=== PATIENT | male | born 1985 | race Caucasian/White ===

== ENCOUNTER 2023-10-17 18:19 | Emergency (ER) | payer OTHER, SELFPAY ==
[2023-10-17 18:27] VITALS: BP 123/75
[2023-10-17 20:03] LABS: Urine Albumin Negative (Neg - Trace); Urine Bilirubin Negative (Negative); Urine Character Clear (Clear); Urine Color Yellow; Urine Glucose Negative (Negative); Urine Ketone Negative (Negative); Urine Leukocyte Negative (Negative); Urine Nitrite Negative (Negative); Urine Occult Blood Negative (Negative); Urine Specific Gravity 1.015 (<1.030); Urine Urobilinogen Negative (Neg - 1+)
--- NOTE | 2023-10-17 20:27 | ED.GENMED ---
History of Present Illness
General
Chief Complaint: Male Genito-Urinary Symptoms
Time Seen by Provider: 10/17/23 19:58
Travel History
Have you had any contact with someone who has COVID-19?: No
Do you have any symptoms of coronavirus? Fever > 100 degrees, chills, cough, shortness of breath, sore throat, loss of taste or smell, muscle aches, or headache?: No
History of Present Illness
History of Present Illness:
38-year-old otherwise healthy male presents to the emergency department for evaluation of left testicular pain beginning last week. He states he initially had UTI symptoms and went to a urgent care, apparently tested negative for STDs as did his
significant other, he was treated with a 1 week course of doxycycline however symptoms did not change. He is also concerned for a palpable lump to the left side of his penile shaft. Denies any dysuria or penile discharge. Denies any abdominal
pain, night sweats, or fevers
Past History
Past History
ED Past Medical History: Negative Arrthythmia or Asthma
Social History
Tobacco: Smoker
Alcohol: None
Drug: None
Living: with family
Employment: Employed
Family History
Family History: Hypertension
Review of Systems
Review of Systems
Allergies reviewed?: Yes
All Other Systems: ROS reviewed and negative except as documented in HPI and ROS
Phy Exam
Physical Exam
Physical Exam:
GEN: Well appearing, NAD, WDWN
HEENT: Oral mucosa moist, no scleral icterus
Cardiac: Regular rate
Lung: No respiratory distress, no tachypnea
: Circumcised, there is a firm nodular lump palpated to the distal penile shaft deep to the skin, feel this most likely represents an epidermal cyst. Major penile shaft is unremarkable. There is tenderness to the left epididymis with no obvious
swelling, no abnormal testicular lie, cremasteric reflexes intact bilaterally
MSK: No gross deformity or injuries
Skin: Good color, no pallor or jaundice, no rashes
Neuro: AO x3, moves all extremities freely
Psych: Calm, cooperative
Course
Orders/Labs/Results
Orders:
Orders
10/17/23 19:52
Urinalysis Reflex To Culture Urgent
Date Specimen was Collected: 10/17/23
Time Specimen was Collected: 18:32
Vital Signs
Initial and Last Documented VS:
Initial Vital Signs
Temp Pulse Resp BP Pulse Ox
98.4 F 110 16 123/75 99
10/17/23 18:27 10/17/23 18:27 10/17/23 18:27 10/17/23 18:27 10/17/23 18:27
Last Documented Vital Signs
Temp Pulse Resp BP Pulse Ox
98.4 F 100 16 123/75 98
10/17/23 18:27 10/17/23 20:36 10/17/23 18:27 10/17/23 18:27 10/17/23 20:36
MDM/Problems Addressed
MDM/Problems Addressed:
Patient's exam is unremarkable, he does have residual tenderness to the epididymis which is suspicious for epididymitis however urinalysis is clear. Ideally epididymitis is treated for longer than 1 week as he was given by urgent care thus we will
put him on a full 14-day course with prescription NSAIDs. Recommend outpatient urology follow-up regarding the palpable lump in the penile shaft which most likely represents an epidermal cyst
*Critical Care Note
Total Time (30-74mins, 75-104mins- exclusive of procedures): Not Applicable
ED Attending Note
-
Portions of this chart may have been created with voice recognition software.� Occasional wrong word or��sound alike� substitutions may have occurred due to the inherent limitations of voice recognition software.
Discharge Plan
Departure
Patient Disposition: Home (Routine Discharge)
Date of Disposition: 10/17/23
Time of Disposition: 20:27
Patient with high blood pressure during this ER visit?: No
Discharge Problem:
Epididymitis
Instructions: Epididymitis (DC)
Prescriptions:
New
doxycycline hyclate 100 mg tablet
100 mg PO BID 14 Days Qty: 28 0RF
diclofenac potassium 50 mg tablet
50 mg PO TID PRN (Reason: Pain) Qty: 20 0RF
No Action
cetirizine [Zyrtec] 10 MG tablet
10 mg PO DAILY
albuterol sulfate 1 PUFF HFA aerosol inhaler
1 - 2 puff inhalation R Q4HPRN PRN (Reason: sob)
bktocjkzr-TPC-XA-acetaminophen 295 ML liquid
30 ml PO PRN PRN (Reason: cough)
Dayquil
1 cap PO PRN PRN (Reason: cold)
Patient Comments:
(liquid)
Mucinex
1 cap PO BID
Patient Comments:
pt does not know dose
prednisone 50 MG tablet
50 mg PO DAILY 5 Days 0RF
Referrals:
Horace Alicea MD [Active] - Call in 1-3 days for appt
Srinivas Granger DO [Family Provider] -
Activity Restrictions/Additional Instructions:
The lump on your penile shaft is probably an epidermoid cyst. These are not harmful and not malignant
Please follow up with urology if the treatment provided today does not improve symptoms
Interventions
Interventions:
*Risk Screen - Suicide Last Done: 10/17/23 20:36
*General Assessment Last Done: 10/17/23 18:27
*Neglect/Abuse Screening Last Done: 10/17/23 18:27
*Nursing Disposition Last Done: 10/17/23 20:36
ED-Male Genitourinary Assessment Last Done: 10/17/23 20:06
Discharge Date and Time
Discharge Date/Time: 10/17/23 20:37
== END 2023-10-17 20:37 | disposition home or self-care (01) ==
LOC: EMR 18:19
PROVIDERS: Emergency Medicine; EMERGENCY PHYSICIAN Emergency Medicine; FAMILY PHYSICIAN Family Medicine
DX: N45.1 Epididymitis (principal); F17.200 Nicotine dependence, unspecified, uncomplicated
CPT/HCPCS: 99283; 81003